=== PATIENT | male | born 1960 | race Caucasian/White ===

== ENCOUNTER 2017-01-28 02:25 | Emergency (ER) | payer BC, OTHER ==
[2017-01-28] MEDS ORDERED: Alum Hydrox/Mag Hydrox/Simeth 30 ML, Lidocaine 2% 15 ML PO ONE ×2 (02:42)
[2017-01-28] MEDS ORDERED: HYDROmorphone 1 MG/ML Syringe IVPUSH ONE ×2 (02:51→04:31)
[2017-01-28] MEDS ORDERED: Ondansetron 4 MG/2 ML SDV IVPUSH ONE (02:51)
[2017-01-28] MEDS ORDERED: Sodium Chloride 0.9% 1,000 ML IV SCH (03:00)
--- NOTE | 2017-01-28 04:00 | EDM.PDOC ---
<Christoph Todd - Last Filed: 01/28/17 06:54> ED HPI GENERAL MEDICAL PROBLEM - General Chief Complaint: Abdominal Pain Stated Complaint: ABDOMINAL PAIN POSS HEARTBURN Time Seen by Provider: 01/28/17 02:30 Source of Information: Reports: Patient, RN Notes Reviewed History Limitations: Reports: No Limitations - History of Present Illness INITIAL COMMENTS - FREE TEXT/NARRATIVE: The patient states that he was woken around 03:00 with severe epigastric pain. He is unable to describe its character, other than "miserable". It does not radiate. He has had nausea and vomiting, but no constipation or diarrhea. No urinary symptoms. No recent fever. He states that he had similar symptoms on 01/22/2017. He was seen at the clinic and prescribed Prilosec which he takes every morning, along with over -the-counter Zantac every evening. He states that he has never previously had an EGD. His PCP is Dr. Garcia. Epigastric Pain Score (Numeric/FACES): 10 - Related Data Allergies Allergy/AdvReac Type Severity Reaction Status Date / Time No Known Allergies Allergy Verified 01/28/17 02:38 Home Meds: Home Meds Omeprazole 20 mg PO DAILY 01/28/17 [History] Past Medical History Gastrointestinal History: Reports: GERD - Past Surgical History GI Surgical History: Reports: Hernia Repair/Other Social & Family History - Tobacco Use Smoking Status *Q: Never Smoker - Caffeine Use Caffeine Use: Reports: Coffee - Alcohol Use Alcohol Use History: No - Recreational Drug Use Recreational Drug Use: No - Living Situation & Occupation Living situation: Reports: , with Spouse, with Family (2 kids) 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) ED ROS GENERAL - Review of Systems Review Of Systems: See Below Constitutional: Reports: No Symptoms HEENT: Reports: No Symptoms Respiratory: Reports: No Symptoms Cardiovascular: Reports: No Symptoms Endocrine: Reports: No Symptoms GI/Abdominal: Reports: No Symptoms : Reports: No Symptoms Musculoskeletal: Reports: No Symptoms Skin: Reports: No Symptoms Neurological: Reports: No Symptoms Psychiatric: Reports: No Symptoms Hematologic/Lymphatic: Reports: No Symptoms Immunologic: Reports: No Symptoms ED EXAM, GI/ABD - Physical Exam Exam: See Below Exam Limited By: No Limitations General Appearance: Alert, WD/WN, Mild Distress (Appears uncomfortable) Eyes: Bilateral: Normal Appearance, EOMI Ears: Normal External Exam, Hearing Grossly Normal, Normal TMs Nose: Normal Inspection, No Blood Throat/Mouth: Normal Inspection, Normal Lips, Normal Voice, No Airway Compromise Head: Atraumatic, Normocephalic Neck: Normal Inspection, Full Range of Motion Respiratory/Chest: No Respiratory Distress, Lungs Clear, Normal Breath Sounds, No Accessory Muscle Use. No: Crackles, Rhonchi, Wheezing Cardiovascular: Normal Peripheral Pulses, Regular Rate, Rhythm, No Gallop, No JVD, No Murmur, No Rub GI/Abdominal: Normal Bowel Sounds, Soft, Non-Tender (even in the epigastric region), No Organomegaly, No Distention, No Abnormal Bruit, No Mass. No: Aortic Pulsation, Aortic Bruit (Male) Exam: Deferred Rectal (Males) Exam: Deferred Back Exam: Normal Inspection, Full Range of Motion. No: CVA Tenderness (L), CVA Tenderness (R) Extremities: Normal Inspection, Normal Range of Motion, No Pedal Edema, Normal Capillary Refill Neurological: Alert, Oriented, Normal Cognition, Normal Gait, No Motor/Sensory Deficits Psychiatric: Normal Affect Skin Exam: Warm, Dry, Intact, Normal Color, No Rash Lymphatic: No Adenopathy Course - Vital Signs Last Recorded V/S: Last Vital Signs Temp 96 F 01/28/17 02:31 Pulse 73 01/28/17 05:09 Resp 18 01/28/17 05:09 BP 143/89 H 01/28/17 05:09 Pulse Ox 96 01/28/17 05:09 - Orders/Labs/Meds Orders: Active Orders 24 hr Category Date Time Status Accu Check [Blood Glucose Check, Bedside] [RC] ONETIME Care 01/28/17 02:53 Active Sodium Chloride 0.9% [Normal Saline] 1,000 ml Med 01/28/17 03:00 Active IV ASDIRECTED Sodium Chloride 0.9% [Saline Flush] Med 01/28/17 06:06 Active 10 ml FLUSH ONETIME PRN Medication Orders Sodium Chloride (Normal Saline) 1,000 mls @ 150 mls/hr IV ASDIRECTED CÉSAR Last Admin: 01/28/17 03:00 Dose: 150 mls/hr Sodium Chloride (Saline Flush) 10 ml FLUSH ONETIME PRN PRN Reason: IV FLUSH Last Admin: 01/28/17 06:23 Dose: 10 ml Labs: Laboratory Tests 01/28/17 01/28/17 01/28/17 Range/Units 02:41 02:41 03:05 WBC 7.20 (4.23-9.07) K/mm3 RBC 5.36 (4.63-6.08) M/mm3 Hgb 15.6 (13.7-17.5) gm/L Hct 46.3 (40.1-51.0) % MCV 86.4 (79.0-92.2) fl MCH 29.1 (25.7-32.2) pg MCHC 33.7 (32.2-35.5) g/dl RDW Std Deviation 51.7 H (35.1-43.9) fL Plt Count 245 (163-337) K/mm3 MPV 11.2 (9.4-12.3) fl Neutrophils % (Manual) 62 H (40-60) % Band Neutrophils % 0 (0-10) % Lymphocytes % (Manual) 32 (20-40) % Atypical Lymphs % 0 % Monocytes % (Manual) 4 (2-10) % Eosinophils % (Manual) 2 (0.8-7.0) % Basophils % (Manual) 0 L (0.2-1.2) Platelet Estimate Adequate RBC Morph Comment Normal Puncture Site Rt radial ABG pH 7.46 H (7.35-7.45) ABG pCO2 20.9 L (35.0-45.0) mmHg ABG pO2 95.0 (80.0-100.0) mmHg ABG HCO3 14.5 L (22.0-26.0) meq/L ABG O2 Saturation 96.9 (96.0-97.0) % ABG Base Excess -7.1 L (-2-2.0) Guillaume Test Positive A-a Gradient 13 mmHg FiO2 21.00 (21.00-100.00) % Sodium 142 (136-145) mEq/L Potassium 3.6 (3.5-5.1) mEq/L Chloride 102 (98-107) mEq/L Carbon Dioxide 21 (21-32) mEq/L Anion Gap 22.6 H (5-15) BUN 19 H (7-18) mg/dL Creatinine 1.2 (0.7-1.3) mg/dL Est Cr Clr Drug Dosing 74.95 mL/min Estimated GFR (MDRD) > 60 (>60) mL/min BUN/Creatinine Ratio 15.8 (14-18) Glucose 157 H (74-106) mg/dL POC Glucose (70-105) mg/dL Lactic Acid (0.4-2.0) mmol/L Calcium 9.8 (8.5-10.1) mg/dL Total Bilirubin 0.6 (0.2-1.0) mg/dL AST 21 (15-37) U/L ALT 32 (16-63) U/L Alkaline Phosphatase 77 (46-116) U/L Total Protein 7.9 (6.4-8.2) g/dl Albumin 4.4 (3.4-5.0) g/dl Globulin 3.5 gm/dL Albumin/Globulin Ratio 1.3 (1-2) Lipase 127 (73-393) U/L Urine Color (Yellow) Urine Appearance (Clear) Urine pH (5.0-8.0) Ur Specific [place] (1.005-1.030) Urine Protein (Negative) Urine Glucose (UA) (Negative) Urine Ketones (Negative) Urine Occult Blood (Negative) Urine Nitrite (Negative) Urine Bilirubin (Negative) Urine Urobilinogen (0.2-1.0) Ur Leukocyte Esterase (Negative) Urine RBC (0-5) /hpf Urine WBC (0-5) /hpf Ur Epithelial Cells (0-5) /hpf Urine Bacteria (FEW) /hpf Urine Mucus (FEW) /hpf 01/28/17 01/28/17 01/28/17 Range/Units 03:07 03:31 04:11 WBC (4.23-9.07) K/mm3 RBC (4.63-6.08) M/mm3 Hgb (13.7-17.5) gm/L Hct (40.1-51.0) % MCV (79.0-92.2) fl MCH (25.7-32.2) pg MCHC (32.2-35.5) g/dl RDW Std Deviation (35.1-43.9) fL Plt Count (163-337) K/mm3 MPV (9.4-12.3) fl Neutrophils % (Manual) (40-60) % Band Neutrophils % (0-10) % Lymphocytes % (Manual) (20-40) % Atypical Lymphs % % Monocytes % (Manual) (2-10) % Eosinophils % (Manual) (0.8-7.0) % Basophils % (Manual) (0.2-1.2) Platelet Estimate RBC Morph Comment Puncture Site ABG pH (7.35-7.45) ABG pCO2 (35.0-45.0) mmHg ABG pO2 (80.0-100.0) mmHg ABG HCO3 (22.0-26.0) meq/L ABG O2 Saturation (96.0-97.0) % ABG Base Excess (-2-2.0) Guillaume Test A-a Gradient mmHg FiO2 (21.00-100.00) % Sodium (136-145) mEq/L Potassium (3.5-5.1) mEq/L Chloride (98-107) mEq/L Carbon Dioxide (21-32) mEq/L Anion Gap (5-15) BUN (7-18) mg/dL Creatinine (0.7-1.3) mg/dL Est Cr Clr Drug Dosing mL/min Estimated GFR (MDRD) (>60) mL/min BUN/Creatinine Ratio (14-18) Glucose (74-106) mg/dL POC Glucose 146 H (70-105) mg/dL Lactic Acid 3.1 H (0.4-2.0) mmol/L Calcium (8.5-10.1) mg/dL Total Bilirubin (0.2-1.0) mg/dL AST (15-37) U/L ALT (16-63) U/L Alkaline Phosphatase (46-116) U/L Total Protein (6.4-8.2) g/dl Albumin (3.4-5.0) g/dl Globulin gm/dL Albumin/Globulin Ratio (1-2) Lipase (73-393) U/L Urine Color Yellow (Yellow) Urine Appearance Clear (Clear) Urine pH 6.0 (5.0-8.0) Ur Specific [place] 1.025 (1.005-1.030) Urine Protein Negative (Negative) Urine Glucose (UA) Negative (Negative) Urine Ketones 3+ H (Negative) Urine Occult Blood Negative (Negative) Urine Nitrite Negative (Negative) Urine Bilirubin Negative (Negative) Urine Urobilinogen 0.2 (0.2-1.0) Ur Leukocyte Esterase Negative (Negative) Urine RBC 0-5 (0-5) /hpf Urine WBC 0-5 (0-5) /hpf Ur Epithelial Cells 0-5 (0-5) /hpf Urine Bacteria Not seen (FEW) /hpf Urine Mucus Not seen (FEW) /hpf Meds: Medications Generic Name Dose Route Start Last Admin Trade Name Evelin PRN Reason Stop Dose Admin Sodium Chloride 1,000 mls @ 150 mls/hr 01/28/17 03:00 01/28/17 03:00 Normal Saline IV 150 mls/hr ASDIRECTED CÉSAR Administration Sodium Chloride 10 ml 01/28/17 06:06 01/28/17 06:23 Saline Flush FLUSH 10 ml ONETIME PRN Administration IV FLUSH Discontinued Medications Generic Name Dose Route Start Last Admin Trade Name Evelin PRN Reason Stop Dose Admin Al Hydroxide/Mg Hydroxide 30 0 ml 01/28/17 02:42 01/28/17 03:28 ml/ Lidocaine HCl 15 ml PO 01/28/17 02:43 45 ml STAT ONE Administration Diatrizoate Meglum/Diatrizoate Sod 90 ml 01/28/17 06:06 01/28/17 06:23 Gastrografin 37% PO 01/28/17 06:07 90 ml ONETIME ONE Administration Hydromorphone HCl 1 mg 01/28/17 02:51 01/28/17 03:04 Dilaudid IVPUSH 01/28/17 02:52 1 mg ONETIME ONE Administration Hydromorphone HCl 1 mg 01/28/17 04:31 01/28/17 04:40 Dilaudid IVPUSH 01/28/17 04:32 1 mg ONETIME ONE Administration Hydromorphone HCl 0.5 mg 01/28/17 07:26 Dilaudid IVPUSH 01/28/17 07:27 ONETIME ONE Sodium Chloride 400 mls @ 999 mls/hr 01/28/17 07:26 Normal Saline IV 01/28/17 07:50 .BOLUS ONE Iopamidol 125 ml 01/28/17 06:06 01/28/17 06:23 Isovue-300 (61%) IVPUSH 01/28/17 06:07 125 ml ONETIME ONE Administration Ondansetron HCl 4 mg 01/28/17 02:51 01/28/17 03:04 Zofran IVPUSH 01/28/17 02:52 4 mg ONETIME ONE Administration - Re-Assessments/Exams Free Text/Narrative Re-Assessment/Exam: 01/28/17 03:59 The patient states that he feels significant, although incomplete relief of symptoms following Dilaudid, Zofran, and a GI cocktail. 01/28/17 04:32 The patient was reexamined. He states that he continues to have epigastric pain , but his abdomen is nontender to palpation, even in the epigastric region. There is no abdominal bruit or palpable aorta. No lower extremity tingling, numbness, or weakness. The etiology is most likely acid reflux, but I want to make sure that we are not missing something more serious, therefore the patient has agreed to a CT scan of the abdomen and pelvis with oral and IV contrast. 01/28/17 06:[address] Keller and care of the patient turned over to him at this time for change of shift. Departure - Departure Disposition: Home, Self-Care 01 Clinical Impression: GERD (gastroesophageal reflux disease) Qualifiers: Esophagitis presence: without esophagitis Qualified Code(s): K21.9 - Gastro- esophageal reflux disease without esophagitis Abdominal pain Qualifiers: Abdominal location: upper abdomen, unspecified Qualified Code(s): R10.10 - Upper abdominal pain, unspecified - Discharge Information Referrals: PCP,None [Primary Care Provider] - Forms: ED Department Discharge Additional Instructions: continue prilosec as prescribed, increase zantac as discussed, tums, maalox or mylanta recomended for further discomfort as needed which will further reduce acidity of your stomach, help you do better over time. Follow up with your regular medical provider if not much better within 1 to 2 days, return to ED as needed, If you start having pain right upper abdomen that radiates to your back that could be a sign of gallbladder disease. See your medical provider or return to ED if that occurs. <Osmel Keller - Last Filed: 01/28/17 07:59> Course - Re-Assessments/Exams Free Text/Narrative Re-Assessment/Exam: 01/28/17 07:35. Have assumed care from Dr Todd at change of shift awaiting CT scan and report. Report is back, slight haziness wall of GB noted,no stones , no other acute findings. See report for details. He has not had RUQ pain radiating to his back, denies any hx of GB problems. He is currently nontender RUQ. Will bolus in remainder of liter NS that has been running, nausea is better but still having some discomfort, asking for another dose of pain medication prior to discharge, will do that, discharge instr. as documented. Departure - Departure Time of Disposition: 07:55 Condition: Fair
[2017-01-28 05:13] VITALS: BP 143/89
[2017-01-28] MEDS ORDERED: Iopamidol 612 MG/ML 150 ML Bottle IVPUSH ONE (06:06)
[2017-01-28] MEDS ORDERED: Diatrizoate Meglumine/Diatrizoate Sodium 37% 120 ML Bottle PO ONE (06:06)
[2017-01-28] MEDS ORDERED: Sodium Chloride 0.9% 10 ML Syringe FLUSH PRN (06:06)
--- NOTE | 2017-01-28 06:46 | CT ---
CT abdomen and pelvis Technique: Multiple axial sections were obtained from above the dome of the diaphragm inferiorly through the pubic symphysis. Intravenous and oral contrast has been given. Delayed images were also obtained through the bladder. Comparison: Previous CT abdomen and pelvis exam of 12/10/13. Findings: Slight areas of scarring are seen within both lung bases. Liver shows no focal parenchymal abnormality. Spleen shows several small low-density lesions which are stable from prior exam and therefore incidental. Gallbladder is distended. Gallbladder wall is slightly hazy. No calcified gallstones are seen. Pancreas appears within normal limits. Nodule is noted within the left adrenal gland measuring 1.6 cm. This is a stable finding from prior CT and therefore benign. There is an area of scarring seen within left kidney which is stable. Kidneys otherwise are unremarkable. Aorta shows no aneurysmal dilatation. No retroperitoneal adenopathy or mesenteric abnormalities are seen. No pelvic mass or adenopathy is seen. No free fluid is identified. Delayed images shows contrast within the distal ureters and within the bladder. Bone window settings were reviewed which shows slight degenerative change scattered within the spine. Impression: 1. Slightly distended gallbladder. Gallbladder wall is slightly hazy. This may be incidental but please correlate if patient has any symptoms to suggest gallbladder disease to warrant further imaging by ultrasound. 2. Other incidental findings as described above. Diagnostic code #3
[2017-01-28] MEDS ORDERED: HYDROmorphone 0.5 MG/0.5 ML Syringe IVPUSH ONE (07:26)
[2017-01-28] MEDS ORDERED: Sodium Chloride 0.9% 400 ML IV ONE (07:26)
== END 2017-01-28 08:36 | disposition home or self-care (01) ==
LOC: JD.ED 02:25
DX: K21.9 Gastro-esophageal reflux disease without esophagitis (principal)
CPT/HCPCS: 36415; 36600; 74177; 80053; 81001; 82803; 82962; 83605; 83690; 85025; 96361; 96374; 96375; 99284; A9270; J1170; J2405; J7040; J7050; Q9963; Q9967

== ENCOUNTER 2023-06-22 07:22 | Emergency (ER) | payer BC, OTHER ==
[2023-06-22] MEDS ORDERED: Sodium Chloride 0.9% 10 ML Syringe FLUSH PRN (07:44)
[2023-06-22 08:13] LABS: BASOPHILS ABSOLUTE AUTO 0.1 K/mm3 (0.0-0.2); BASOPHILS PERCENT AUTO 0.5 % (0.0-1.0); EOSINOPHILS PERCENT AUTO 0.1 % (0.0-6.0); HEMOGLOBIN 16.1 gm/dl (14.0-18.0); IMMATURE GRAN ABSOLUTE AUTO 0.04 K/mm3 (0.00-0.05); IMMATURE GRAN PERCENT AUTO 0.4 % (0.0-0.4); LYMPHOCYTES ABSOLUTE AUTO 0.4 K/mm3 (1.0-4.8); MEAN CORPUSCULAR HEMOGLOBIN 30.4 pg (28.0-32.0); MEAN CORPUSCULAR HGB CONC 34.3 g/dl (32.0-36.0); MEAN CORPUSCULAR VOLUME 88.8 fl (83.0-99.0); MEAN PLATELET VOLUME 8.6 fl (9.4-12.4); MONOCYTES ABSOLUTE AUTO 0.8 K/mm3 (0.0-0.8); MONOCYTES PERCENT AUTO 7.2 % (0.0-8.0); NEUTROPHILS ABSOLUTE AUTO 9.3 K/mm3 (1.8-7.7); NEUTROPHILS PERCENT AUTO 87.8 % (41.0-71.0); PLATELET COUNT,PLT 267 K/mm3 (150-400); RED BLOOD CELL COUNT 5.29 M/mm3 (4.52-5.90); WHITE BLOOD CELL COUNT,WBC 10.58 K/mm3 (3.9-11.3)
[2023-06-22 08:15] LABS: APPEARANCE,URINE CLEAR (Clear); BILIRUBIN,URINE NEGATIVE (Negative); COLOR,URINE YELLOW (Yellow); GLUCOSE,URINE NEGATIVE (Negative); KETONES,URINE NEGATIVE (Negative); LEUKOCYTE ESTERASE,URINE NEGATIVE (Negative); NITRITE,URINE NEGATIVE (Negative); OCCULT BLOOD,URINE NEGATIVE (Negative); PH,URINE 6.5 (5.0-8.0); PROTEIN,URINE NEGATIVE (Negative); UROBILINOGEN,URINE 0.2 (0.2-1.0)
[2023-06-22 08:24] LABS: BACTERIA,URINE FEW /hpf (FEW); EPITHELIAL CELLS,URINE 0-5 /hpf (0-5); MUCUS,URINE MODERATE /hpf (FEW); RBC,URINE 0-5 /hpf (0-5); WBC,URINE 0-5 /hpf (0-5)
[2023-06-22 08:36] LABS: HEMOGLOBIN A1C 5.6 %
[2023-06-22 08:37] LABS: A/G RATIO 1.1 (1-2); ALBUMIN 3.9 g/dl (3.4-5.0); BILIRUBIN TOTAL 0.6 mg/dL (0.2-1.0); C-REACTIVE PROTEIN 1.3 mg/dL (<1.0); CALCIUM 9.3 mg/dL (8.5-10.1); CREATININE 1.2 mg/dL (0.7-1.3); EST CRCL DRUG DOSING (CG) 69.72 mL/min; MAGNESIUM 1.5 mg/dL (1.8-2.4); PROTEIN TOTAL,TP 7.5 g/dl (6.4-8.2)
[2023-06-22 08:38] LABS: ANION GAP 14.1 (5-15); POTASSIUM,K 4.1 mEq/L (3.5-5.1)
[2023-06-22 08:51] LABS: INFLUENZA A NAA NEGATIVE (NEGATIVE); RESPIRATORY SYNCYTIAL VIR NAA NEGATIVE (NEGATIVE)
[2023-06-22 09:02] LABS: CORONAVIRUS COVID-19 NAA POSITIVE (NEGATIVE)
[2023-06-22] MEDS ORDERED: Sulfamethoxazole/Trimethoprim 800-160 MG Tab PO ONE (09:11)
[2023-06-22 10:01] VITALS: BP 138/92; PULSE 101
== END 2023-06-22 09:40 | disposition home or self-care (01) ==
LOC: JD.ED 07:22
DX: U07.1 COVID-19 (principal); N41.9 Inflammatory disease of prostate, unspecified
CPT/HCPCS: 0241U; 36415; 71046; 80053; 81001; 83036; 83735; 84484; 85025; 86140; 93005; 99284; A9270; G0103; J3490; 93010; 99283